=== PATIENT | female | born 1990 | race Hispanic/Latino ===

== ENCOUNTER 2021-03-10 21:15 | Emergency (ER) | payer SELFPAY ==
[2021-03-10] MEDS ORDERED: predniSONE 20 MG TAB ONE (21:58)
== END 2021-03-10 22:25 | disposition home or self-care (01) ==
LOC: NAV ERS 21:15
DX: G51.0 Bell's palsy (principal); J02.9 Acute pharyngitis, unspecified
CPT/HCPCS: 87081; 87430; 99284; J7512